=== PATIENT | female | born 1965 | race Caucasian/White ===

== ENCOUNTER 2020-11-29 19:38 | Emergency (ER) | payer MEDICARE ==
[2020-11-29] MEDS ORDERED: HYDROCODON-ACE1 EAC2 PO (23:32)
[2020-11-29] MEDS ORDERED: TORADOL 10 MG T10 MG PO (23:35)
== END 2020-11-29 23:54 | disposition home or self-care (01) ==
LOC: ER1 19:38
DX: S39.012A Strain of muscle, fascia and tendon of lower back, initial encounter (principal); M51.17 Intervertebral disc disorders with radiculopathy, lumbosacral region; E11.9 Type 2 diabetes mellitus without complications; I10 Essential (primary) hypertension; I25.2 Old myocardial infarction; Z88.6 Allergy status to analgesic agent; X58.XXXA Exposure to other specified factors, initial encounter
CPT/HCPCS: 72131; 73502; 96372; 99284; J1100; J1885